=== PATIENT | male | born 1970 | race Caucasian/White ===

== ENCOUNTER 2022-11-22 04:21 | Emergency (ER) | payer OTHER ==
[2022-11-22 04:43] VITALS: RESP 20; BMI 69.5
[2022-11-22] MEDS ORDERED: ACETAMINOPHEN 325 MG TABLET (FP) PO ONE (05:04)
[2022-11-22] MEDS ORDERED: LIDOCAINE 5% TOPICAL PATCH TP ONE (05:05)
[2022-11-22] MEDS ORDERED: LIDOCAINE 5% TOPICAL PATCH ONE (05:19)
[2022-11-22] MEDS ORDERED: ACETAMINOPHEN 325 MG TABLET (FP) ONE ×2 (05:19→05:25)
[2022-11-22] MEDS ORDERED: KETOROLAC TROMETHAMINE 30 MG/1 ML VIAL IM ONE (06:45)
[2022-11-22] MEDS ORDERED: KETOROLAC TROMETHAMINE 30 MG/1 ML VIAL ONE (07:16)
[2022-11-22 08:50] VITALS: BP 141/86; PULSE 78; TEMP 98
== END 2022-11-22 08:50 | disposition home or self-care (01) ==
LOC: JER 04:21
PROC: 3E0233Z Introduction of Anti-inflammatory into Muscle, Percutaneous Approach (ICD-10-PCS; principal; 2022-11-22)
DX: S46.012A Strain of muscle(s) and tendon(s) of the rotator cuff of left shoulder, initial encounter (principal); S16.1XXA Strain of muscle, fascia and tendon at neck level, initial encounter; V43.02XA Car driver injured in collision with other type car in nontraffic accident, initial encounter
CPT/HCPCS: 70450-TC; 71046-TC-FY; 71101-TC-LT-FY; 72125-TC; 72128-TC; 73030-TC-LT-FY; 73502-TC-LT-FY; 99284-25

== ENCOUNTER 2023-04-25 02:37 | Observation (INO) | payer OTHER ==
[2023-04-25 02:55] VITALS: BMI 31.5
[2023-04-25] MEDS ORDERED: SODIUM CHLORIDE 0.9% 500 ML INFUS.BAG IV ONE (03:45)
[2023-04-25] MEDS ORDERED: DEXAMETHASONE 4 MG TABLET (FP) PO ONE (04:23)
[2023-04-25 04:25] LABS: BASO % 0.9 % (0-2.0); EOS % 1.6 % (0-4.5); HEMATOCRIT 44.8 % (35.4-49); LYMPH % 42.4 % (8-40); MCH 33.6 pg (25.7-33.7); MCHC 33.6 g/dl (32.0-35.9); MEAN CELL VOLUME 100.1 fl (80-96); MEAN PLT VOLUME 8.3 fl (7.5-11.1); MONO % 15.4 % (3.8-10.2); NEUT % 39.7 % (42.8-82.8); PLATELET COUNT 247 10^3/uL (134-434); RBC 4.48 M/mm3 (4.00-5.60); RDW 14.6 % (11.9-15.9); WHITE BLOOD COUNT 4.8 K/mm3 (4.0-10.0)
[2023-04-25] MEDS ORDERED: DEXAMETHASONE 4 MG TABLET (FP) ONE ×2 (04:33→04:36)
[2023-04-25 04:40] LABS: POTASSIUM 4.1 mmol/L (3.5-5.1)
[2023-04-25 04:41] LABS: CALCIUM 9.3 mg/dL (8.5-10.1)
[2023-04-25 04:43] LABS: ALBUMIN 3.6 g/dl (3.4-5.0); BLOOD UREA NITROGEN 17.2 mg/dL (7-18)
[2023-04-25 04:46] LABS: CREATININE 1.1 mg/dL (0.55-1.3)
[2023-04-25 04:47] LABS: BILIRUBIN,TOTAL 0.3 mg/dL (0.2-1); TOT PROT 7.3 g/dl (6.4-8.2)
[2023-04-25] MEDS: ALBUTEROL SO4 2.5/IPRATROPIUM 0.5 INH SOL 3 ML VIAL.NEB. NEB SCH ×3 (04:51→05:07)
[2023-04-25 06:55] VITALS: BP 126/91; PULSE 118; RESP 28; TEMP 98.6
== END 2023-04-25 07:48 | disposition left against medical advice (07) ==
LOC: JER 02:37 → JERBED 05:58
PROVIDERS: ADMIT Internal Medicine; ATTEND Internal Medicine
PROC: 3E0F7GC Introduction of Other Therapeutic Substance into Respiratory Tract, Via Natural or Artificial Opening (ICD-10-PCS; principal; 2023-04-25)
PROC: 3E0337Z Introduction of Electrolytic and Water Balance Substance into Peripheral Vein, Percutaneous Approach (ICD-10-PCS; 2023-04-25)
DX: B20 Human immunodeficiency virus [HIV] disease (principal); M79.10 Myalgia, unspecified site; R07.0 Pain in throat; K21.9 Gastro-esophageal reflux disease without esophagitis; I10 Essential (primary) hypertension; E78.00 Pure hypercholesterolemia, unspecified; Z91.013 Allergy to seafood
CPT/HCPCS: 0241U-QW; 36415; 71045-TC-FY; 80053; 85025; 94640; 99285-25; G0378